=== PATIENT | male | born 1965 | race Hispanic/Latino ===

== ENCOUNTER 2024-08-29 04:29 | Emergency (ER) | payer OTHER ==
[~2024-08-29] VITALS: Ht 175.3 cm; Wt 81.6 kg
--- NOTE | 2024-08-29 04:58 | ERN ---
General Chief Complaint: Mechanical Fall Stated Complaint: FALL Time Seen by MD: 04:55 Source: patient History of Present Illness Initial Comments Patient said he was washing his hands in the bathroom and then he turned to dry his hands and he tripped. He broke his fall with his right hand and he feels he broke it. He has a prosthetic left leg in that contributed to his falling. Timing/Duration: 1 hour Severity: mild Allergies: Coded Allergies: No Known Drug Allergies (Unverified Allergy, Unknown, 08/29/24) Home Meds Active Scripts Meloxicam (Meloxicam) 15 Mg Tablet, 15 MG PO DAILY PRN for PAIN for 10 Days, #10 TAB Prov:BRIAN VELEZ DO 08/29/24 Hydrocodone/Acetaminophen (Hydrocodon-Acetaminophen 5-325) 5 Mg-325 Mg Tablet, 1 TAB PO TIDP PRN for pain for 5 Days, #15 TAB 0 Refills Prov:BRIAN VELEZ DO 08/29/24 Past Medical History Past Medical History: Diabetes-Type II, Hypertension Past Surgical History: Other Surgical History Other: LEFT LEG SX, with a prosthesis Constitutional: (-) chills, (-) diaphoresis, (-) fever, (-) malaise, (-) wea kness, (-) other documentation EENTM: (-) eye pain, (-) blurred vision, (-) tearing, (-) double vision, (-) ear pain, (-) ear discharge, (-) nose pain, (-) nose congestion, (-) throat pain, (-) Throat swelling, (-) mouth pain, (-) tooth pain, (-) mouth swelling, (-) other documentation Respiratory: (-) cough, (-) orthopnea, (-) short of breath, (-) stridor, (-) wheezing, (-) other documentation Cardiovascular: (-) chest pain, (-) edema, (-) palpitations, (-) syncope, (-) dyspnea on exertion, (-) other documentation Gastrointestinal/Abdominal: (-) nausea, (-) vomiting, (-) diarrhea, (-) abdominal pain, (-) abdominal distention, (-) constipation, (-) rectal bleeding, (-) dark stool/melena, (-) other documentation Genitourinary: (-) penile discharge, (-) dysuria, (-) frequency, (-) hematuria, (-) pain, (-) other documentation Musculoskeletal: (-) Neck pain, (-) back pain, (-) Flank Pain, (-) joint pain, (-) joint swelling, (-) muscle pain, (-) muscle stiffness, (-) gout, (-) other documentation Skin: (-) laceration, (-) contusion, (-) abrasion, (-) abscess, (-) rash, (-) change in color, (-) change in hair, (-) change in nails, (-) diaphoresis, (-) dryness, (-) other documentation Neuro: (-) altered mental status, (-) headache, (-) syncope, (-) paralysis, (-) numbness, (-) seizure, (-) pre-existing deficit, (-) tremors, (-) weakness, (-) dizziness, (-) slurred speech, (-) vertigo, (-) other documentation Physical Exam General Appearance: (+) no apparent distress General Appearance comment Patient lying in the hospital bed calm with his right hand cradled in his lap covered with a an ice pack. Orientation: (+) alert Head/Face Trauma: No Eye: bilateral eye normal inspection, bilateral eye PERRL, bilateral eye EOMI Extremities Comment Left hand the wrist appears swollen and a little bit bruised. Distal circulation into the fingers is intact. MDM I will get a plain films of his wrist. Pt has comminuted fractures of right ulna and radius. Orthopedic surgery called, they recommend a "hematoma block and reduction." Pt's wrist injected with 20 cc's of 2% Lidocaine with epi for a total dose of 400mg. (Max dose for pt is 560mg). Then traction on wrist and placement in reverse sugar tong splint. Post reduction films. ED Course Orders Procedure Category Date Status Time Wrist Comp 3+Vws Rt RAD 08/29/24 Taken 04:35 Apply Ice Pack To: CPOE 08/29/24 Transmitted (Er) 04:35 Lidocaine 2%-Epi PHA 08/29/24 Complete 1:200,000 (Lidocaine 06:00 Ibuprofen 800 Mg Tab PHA 08/29/24 Complete (Motrin) 06:00 Wrist 2vws Rt RAD 08/29/24 Taken 06:08 Reverse Sugar Tong JORDI 08/29/24 Complete Splint 06:13 Current Medications Medications (Trade) Dose Ordered Sig/Avial Route PRN Reason Start Time Stop Time Status Last Admin Dose Admin Ibuprofen (moTRIN) 800 mg ONCE ONCE PO 08/29/24 06:00 08/29/24 06:01 DC 08/29/24 05:55 Lidocaine/ Epinephrine (Lidocaine 2%-Epi 1:200,000) 20 ml ONCE ONCE IJ 08/29/24 06:00 08/29/24 06:01 DC 08/29/24 05:55 Vital Signs Date Time Temp Pulse Resp B/P (MAP) Pulse Ox O2 Delivery O2 Flow Rate FiO2 08/29/24 07:22 98.1 82 18 152/81 99 Room Air* 0 21 08/29/24 06:21 79 18 160/83 100 Room Air* 0 21 08/29/24 04:59 80 18 164/89 99 Room Air* 0 21 08/29/24 04:32 98.2 82 18 170/74 99 Room Air 0 DX & DISP Disposition: Discharge Departure Impression: Primary Impression: Right wrist fracture Condition: Stable Scripts Meloxicam (Meloxicam) 15 Mg Tablet 15 MG PO DAILY PRN for PAIN for 10 Days, #10 TAB Prov: BRIAN VELEZ DO 08/29/24 Hydrocodone/Acetaminophen (Hydrocodon-Acetaminophen 5-325) 5 Mg-325 Mg Tablet 1 TAB PO TIDP PRN for pain for 5 Days, #15 TAB 0 Refills Prov: BRIAN VELEZ DO 08/29/24 Additional Instructions: You broke your right wrist. The wrist was reduced here in the emergency department. You were placed in a splint. Wear this splint until you have been evaluated by an orthopedist. You will need to see an orthopedist. Call Dr Umana's office today. His clinic is expecting your call. I've prescribed norco tabs to use as needed for severe pain. I've also prescribed meloxicam to take once per day for pain and inflammation. Please return to the emergency department if you have any concerns. Referrals: SELF,REFERRAL (PCP) ZABRINA UMANA GORDON K MD Aug 29, 2024 04:58 BRIAN VELEZ DO Aug 29, 2024 07:48
[2024-08-29] MEDS: ibuPROFEN 800 MG TAB PO ONE (05:55)
[2024-08-29] MEDS: LIDOCAINE 2%-EPI 1:200,000 20 ML VIAL IJ ONE (05:55)
[2024-08-29 07:22] VITALS: BP 152/81; PULSE 82; RESP 18; TEMP 98; O2SAT 99
[2024-08-29] MEDS ORDERED: MELO-108 PO (07:46)
[2024-08-29] MEDS ORDERED: HYDR-4060 PO (07:46)
--- NOTE | 2024-08-29 12:07 | HMCIMG ---
WRIST COMP 3+VWS RT HISTORY: Status post fall COMPARISON: None TECHNIQUE: 2 images of right wrist were obtained. FINDINGS: Fracture displacement are seen involving the distal radius and distal ulna. No dislocation is seen. Vascular calcifications are seen. Soft tissue swelling is seen. Degenerative changes are seen. IMPRESSION: 1. Findings as described above.
--- NOTE | 2024-08-29 12:07 | HMCIMG ---
WRIST 2VWS RT HISTORY: Post reduction COMPARISON: Same day x-ray TECHNIQUE: 2 images of left wrist were obtained status post reduction. FINDINGS: Fracture displacement are again seen involving the distal radius and distal ulna grossly unchanged. Vascular calcifications are seen. A cast is seen overlying the visualized bony structure obscuring details. Degenerative changes are seen. IMPRESSION: 1. Findings as described above.
== END 2024-08-29 08:10 | disposition home or self-care (01) ==
LOC: EDH 04:29
DX: S52.501A Unspecified fracture of the lower end of right radius, initial encounter for closed fracture (principal); S52.601A Unspecified fracture of lower end of right ulna, initial encounter for closed fracture; E11.9 Type 2 diabetes mellitus without complications; I10 Essential (primary) hypertension; Z79.899 Other long term (current) drug therapy; Z98.890 Other specified postprocedural states; W01.0XXA Fall on same level from slipping, tripping and stumbling without subsequent striking against object, initial encounter; Y93.89 Activity, other specified; Y92.89 Other specified places as the place of occurrence of the external cause; Y99.8 Other external cause status
CPT/HCPCS: 25605; 99284; 73110; 73100; J3490; 29105